=== PATIENT | male | born 1955 | race Caucasian/White ===

== ENCOUNTER 2019-07-21 22:49 | Emergency (ER) | payer OTHER ==
--- NOTE | 2019-07-21 23:06 | EDM.PDOC ---
ED HPI GENERAL MEDICAL PROBLEM - General Chief Complaint: Genitourinary Problem Stated Complaint: CAN'T GO TO THE BATHROOM Time Seen by Provider: 07/21/19 23:04 Source of Information: Reports: Patient History Limitations: Reports: No Limitations - History of Present Illness INITIAL COMMENTS - FREE TEXT/NARRATIVE: 63-year-old male who reports onset of bilateral mid to lower back pain yesterday afternoon while he was helping his will to do some work and then at approximately 8 PM last night he urinated blood. He was able urinate with no problems and did not notice any clots but he continued to have urination of blood today. He was seen at clinic by Dr. Hancock and reports that at the clinic his urine did not appear to have gross blood. He did have a urinalysis performed and some blood tests which are not available to me at this time. He was also scheduled to have a CT scan of his abdomen and pelvis and was referred to a urologist. He reports that he urinated once when he got home today at about 3 PM and he has not had any urine output since that time. He reports he has the feeling to urinate but he cannot urinate. He reports that he has discomfort in his lower abdomen that is a pressure and fullness and he rates that as an 8-10/10 at this point. No fever or chills. No nausea or vomiting. He reports that his back pain has pretty much resolved since yesterday. He has had some problems with enlarged prostate and has been on a medication for this for some time. There are no other associated signs or symptoms. There are no other modifying factors. Onset: Other (Yesterday as above) Duration: Getting Worse Location: Reports: Abdomen, Back Quality: Reports: Ache, Pressure Severity: Moderate (to severe.) Improves with: Reports: None Worsens with: Reports: Other (Palpation of his abdomen) Context: Reports: Other (As above) Associated Symptoms: Reports: Other (Blood in his urine. Back pain. Can't urinate.) Treatments [employer]ELOPMENT: Reports: Other (see below) (Nothing) Bladder Pain Score (Numeric/FACES): 7 - Related Data Allergies Allergy/AdvReac Type Severity Reaction Status Date / Time naproxen AdvReac Mild Ringing in Verified 09/12/13 10:12 the Ears Home Meds: Home Meds Losartan [Cozaar] 100 mg PO DAILY 09/12/13 [History] Simvastatin [Zocor] 20 mg PO BEDTIME 09/12/13 [History] Albuterol [Ventolin HFA] 1 - 2 inh INH Q4H PRN 07/22/19 [History] Aspirin [Halfprin] 81 mg PO DAILY 07/22/19 [History] Fluticasone Propionate [Flovent] 1 spr NASBOTH BID 07/22/19 [History] Fluticasone/Salmeterol [Advair 250-50 Diskus] 1 puff INH BID 07/22/19 [History] Multivitamin [Multi-Vitamin Daily] 1 tab PO DAILY 07/22/19 [History] Ranitidine [Zantac] 75 mg PO BID 07/22/19 [History] Tamsulosin HCl 0.4 mg PO BEDTIME 07/22/19 [History] metFORMIN HCl [Metformin HCl] 500 mg PO BID 07/22/19 [History] Past Medical History Cardiovascular History: Reports: High Cholesterol, Hypertension Respiratory History: Reports: COPD Genitourinary History: Reports: Prostate Disorder Endocrine/Metabolic History: Reports: Diabetes, Type II - Past Surgical History GI Surgical History: Reports: Hernia, Inguinal (Left) Musculoskeletal Surgical History: Reports: Other (See Below) (Tumor removed from left posterior leg) Social & Family History - Tobacco Use Smoking Status *Q: Current Every Day Smoker - Alcohol Use Alcohol Use History: No - Living Situation & Occupation Living situation: Reports: with Spouse Occupation: Retired ED ROS GENERAL - Review of Systems Review Of Systems: See Below Constitutional: Reports: No Symptoms HEENT: Reports: No Symptoms Respiratory: Reports: No Symptoms Cardiovascular: Reports: No Symptoms Endocrine: Reports: No Symptoms GI/Abdominal: Reports: Abdominal Pain (Feeling the urge to urinate) : Reports: Hematuria, Urinary Retention Musculoskeletal: Reports: Back Pain Skin: Reports: No Symptoms Neurological: Reports: No Symptoms Hematologic/Lymphatic: Reports: No Symptoms Immunologic: Reports: No Symptoms ED EXAM, RENAL/ - Physical Exam Exam: See Below Exam Limited By: No Limitations General Appearance: Alert, WD/WN, Moderate Distress (Looks fairly uncomfortable) Eye Exam: Bilateral Eye: EOMI, Normal Inspection, PERRL Ears: Normal External Exam, Hearing Grossly Normal Nose: Normal Inspection, Normal Mucosa, No Blood Throat/Mouth: Normal Inspection, Normal Lips, Normal Oropharynx, Normal Voice Head: Atraumatic, Normocephalic Neck: Normal Inspection, Supple, Non-Tender, Full Range of Motion Respiratory/Chest: No Respiratory Distress, Lungs Clear, Normal Breath Sounds, No Accessory Muscle Use, Chest Non-Tender Cardiovascular: Normal Peripheral Pulses, Regular Rate, Rhythm, No Edema, No Murmur GI/Abdominal: Normal Bowel Sounds, Distended (Suprapubic fullness), Tender ( Over suprapubic area) (Male) Exam: No Hernia, Normal Inspection (Uncircumcised) Back Exam: Normal Inspection. No: CVA Tenderness (R), CVA Tenderness (L) Extremities: Normal Inspection, Normal Range of Motion, Non-Tender, No Pedal Edema, Normal Capillary Refill Neurological: Alert, Oriented, CN II-XII Intact, Normal Cognition, Normal Gait, No Motor/Sensory Deficits Skin Exam: Warm, Dry, Intact, Normal Color, No Rash Course - Vital Signs Last Recorded V/S: Last Vital Signs Temp 36.6 C 07/21/19 22:49 Pulse 81 07/22/19 02:55 Resp 18 07/22/19 02:55 BP 145/96 H 07/22/19 02:55 Pulse Ox 98 07/22/19 02:55 - Orders/Labs/Meds Orders: Active Orders 24 hr Category Date Time Status Bladder Scan [RC] ASDIRECTED Care 07/21/19 23:00 Active Goode Catheter Insertion [Insert Urinary Catheter] [OM. Care 07/21/19 23:15 Ordered PC] Q24H Urinary Catheter Assessment [RC] QSHIFT Care 07/21/19 23:13 Active Abdomen Pelvis w wo Cont [CT] Stat Exams 07/22/19 00:12 Ordered CULTURE URINE [RM] Stat Lab 07/21/19 23:44 Received Sodium Chloride 0.9% [Saline Flush] Med 07/22/19 00:12 Active 10 ml FLUSH ASDIRECTED PRN Peripheral IV Insertion Adult [OM.PC] Routine Oth 07/22/19 00:12 Ordered Medication Orders Sodium Chloride (Saline Flush) 10 ml FLUSH ASDIRECTED PRN PRN Reason: Keep Vein Open Last Admin: 07/22/19 00:26 Dose: 10 ml Labs: Laboratory Tests 07/21/19 07/21/19 07/21/19 Range/Units 23:23 23:23 23:44 WBC 15.5 H (4.5-12.0) X10-3/uL RBC 4.71 (4.30-5.75) x10(6)uL Hgb 14.9 (13.5-17.8) g/dL Hct 44.2 (30.0-51.3) % MCV 93.7 (80-96) fL MCH 31.7 (27.7-33.6) pg MCHC 33.8 (32.2-35.4) g/dL RDW 12.0 (11.5-15.5) % Plt Count 322 (125-369) X10(3)uL MPV 7.7 (7.4-10.4) fL Neut % (Auto) 66.9 (46-82) % Lymph % (Auto) 22.7 (13-37) % [place] % (Auto) 6.7 (4-12) % Eos % (Auto) 3 (1.0-5.0) % Baso % (Auto) 1 (0-2) % Neut # (Auto) 10.4 H (1.6-8.3) # Lymph # (Auto) 3.5 (0.6-5.0) # [place] # (Auto) 1.0 (0.0-1.3) # Eos # (Auto) 0.5 (0.0-0.8) # Baso # (Auto) 0.1 (0.0-0.2) # Sodium 142 (135-145) mmol/L Potassium 4.1 (3.5-5.3) mmol/L Chloride 105 (100-110) mmol/L Carbon Dioxide 27 (21-32) mmol/L BUN 10 (7-18) mg/dL Creatinine 0.8 (0.70-1.30) mg/dL Est Cr Clr Drug Dosing TNP Estimated GFR (MDRD) > 60 (>60) BUN/Creatinine Ratio 12.5 (9-20) Glucose 105 (80-116) mg/dL Calcium 9.6 (8.6-10.2) mg/dL Total Bilirubin 0.4 (0.1-1.3) mg/dL AST 17 (5-25) IU/L ALT 25 (12-36) U/L Alkaline Phosphatase 75 (56-112) IU/L Total Protein 7.5 (6.0-8.0) g/dL Albumin 4.2 (3.2-4.6) g/dL Globulin 3.3 g/dL Albumin/Globulin Ratio 1.3 Urine Color Red (YELLOW) Urine Appearance Cloudy (CLEAR) Urine pH 7.0 H (5.0-6.5) Ur Specific [place] 1.005 L (1.010-1.025) Urine Protein 100 H (NEGATIVE) mg/dL Urine Glucose (UA) Normal (NORMAL) mg/dL Urine Ketones 15 H (NEGATIVE) mg/dL Urine Occult Blood Large H (NEGATIVE) Urine Nitrite Positive H (NEGATIVE) Urine Bilirubin Negative (NEGATIVE) Urine Urobilinogen Normal (NEGATIVE) mg/dL Ur Leukocyte Esterase Small H (NEGATIVE) Urine RBC Packed H (0-5) Urine WBC 0-5 (0-5) Ur Squamous Epith Cells Rare (NS,R,O) Urine Bacteria Few H (NS) Meds: Medications Generic Name Dose Route Start Last Admin Trade Name Freq PRN Reason Stop Dose Admin Sodium Chloride 10 ml 07/22/19 00:12 07/22/19 00:26 Saline Flush FLUSH 10 ml ASDIRECTED PRN Administration Keep Vein Open Discontinued Medications Generic Name Dose Route Start Last Admin Trade Name Freq PRN Reason Stop Dose Admin Iopamidol 100 ml 07/22/19 00:23 07/22/19 00:50 Isovue-370 (76%) IV 07/22/19 00:24 98 ml . DIRECTED ONE Administration Lidocaine HCl 1 ml 07/21/19 23:14 07/21/19 23:15 Glydo .XX 07/21/19 23:15 6 ml STAT STA Administration - Radiology Interpretation Free Text/Narrative:: CT scan of the abdomen and pelvis with and without contrast (CT urogram) showed a 2.1 cm exophytic mass on the lower pole of the right kidney. There was also a 6 cm mass in the bladder that was felt to be clot. There was also an enlarged prostate and an infrarenal aneurysmal dilatation of the aorta. - Re-Assessments/Exams Free Text/Narrative Re-Assessment/Exam: 07/21/19 23:02: Bladder scan showed 700 mL. The patient will need a Goode catheter and will most probably place a 3-way Goode secondary to the history of blood. 07/22/19 00:30: Goode catheter was placed and approximately 800 mL of bloody urine was obtained. The patient felt much improved after this. His bladder was irrigated with 1 L of normal saline and no clots were obtained. The effluent from the Goode catheter has since become blood-tinged but with no clots and the Goode catheter is draining normally. The patient has remained vitally stable. I will plan on ordering a CT of his abdomen and pelvis with and without IV contrast (CT urogram). 07/22/19 02:48: The results of the patient's CT scan have just come back at this time. They show a 2.1 cm exophytic mass off the lower pole of the right kidney concerning for renal cell carcinoma. There is also what appears to be a 6 cm blood clot within the urinary bladder. There is also a fusiform infrarenal aneurysmal dilatation to 3.1 cm. I will call and discuss the patient's case with a urologist at [facility]. 07/22/19 03:15: I discussed the patient's case with Dr. Neff, urologist at [facility], and he will look at the patient CT scan and call me back. 07/22/19 03:50: I discussed the patient's case with Dr. Neff again and he would want the patient to present to [facility] for admission to the CDU. He felt the patient to go by private vehicle. I discussed the patient's case with Dr. Call, hospitalist, and he has agreed to accept the patient in transfer. The Goode catheter will be left in place with the collection bag in place. The patient is to go directly to [facility] for admission to the CDU. Departure - Departure Time of Disposition: 04:00 Disposition: DC/Tfer to Acute Hospital 02 Condition: Good Clinical Impression: Gross hematuria, Kidney tumor, Prostatic enlargement - Discharge Information Referrals: Renato Hancock MD [Primary Care Provider] - Forms: ED Department Discharge Additional Instructions: You are to go directly to [facility] in [place] were you will be admitted to the CDU. The nursing staff will give you instructions on exactly where to go. You should have nothing to eat or drink until cleared by the doctors at [facility]. - My Orders Last 24 Hours: My Active Orders 07/21/19 23:00 Bladder Scan [RC] ASDIRECTED 07/21/19 23:13 Urinary Catheter Assessment [RC] QSHIFT 07/21/19 23:15 Goode Catheter Insertion [Insert Urinary Catheter] [OM.PC] Q24H 07/21/19 23:44 CULTURE URINE [RM] Stat 07/22/19 00:12 Abdomen Pelvis w wo Cont [CT] Stat Sodium Chloride 0.9% [Saline Flush] 10 ml FLUSH ASDIRECTED PRN Peripheral IV Insertion Adult [OM.PC] Routine - Assessment/Plan Last 24 Hours: My Active Orders 07/21/19 23:00 Bladder Scan [RC] ASDIRECTED 07/21/19 23:13 Urinary Catheter Assessment [RC] QSHIFT 07/21/19 23:15 Goode Catheter Insertion [Insert Urinary Catheter] [OM.PC] Q24H 07/21/19 23:44 CULTURE URINE [RM] Stat 07/22/19 00:12 Abdomen Pelvis w wo Cont [CT] Stat Sodium Chloride 0.9% [Saline Flush] 10 ml FLUSH ASDIRECTED PRN Peripheral IV Insertion Adult [OM.PC] Routine
[2019-07-21] MEDS ORDERED: Lidocaine 2% HCl 6 ML JEL.PF.APP STA (23:14)
[2019-07-22] MEDS ORDERED: Sodium Chloride 0.9% 10 ML Syringe FLUSH PRN (00:12)
[2019-07-22] MEDS ORDERED: Iopamidol 755 Mg/ML 100 ML Bottle IV ONE (00:23)
[2019-07-22 07:15] VITALS: BP 146/97; PULSE 87
== END 2019-07-22 06:05 ==
LOC: FB.ED 22:49
DX: R31.0 Gross hematuria (principal); D49.511 Neoplasm of unspecified behavior of right kidney; N40.0 Benign prostatic hyperplasia without lower urinary tract symptoms; E78.00 Pure hypercholesterolemia, unspecified; I10 Essential (primary) hypertension; J44.9 Chronic obstructive pulmonary disease, unspecified; E11.9 Type 2 diabetes mellitus without complications; F17.200 Nicotine dependence, unspecified, uncomplicated; Z79.899 Other long term (current) drug therapy; Z88.8 Allergy status to other drugs, medicaments and biological substances; Z79.82 Long term (current) use of aspirin; Z79.84 Long term (current) use of oral hypoglycemic drugs
CPT/HCPCS: 36415; 51702; 51798; 74178; 80053; 81001; 85025; 87086; 99284; 99285; A9270; Q9967

== ENCOUNTER 2020-11-25 13:44 | Emergency (ER) | payer OTHER ==
[2020-11-25] MEDS ORDERED: Sodium Chloride 0.9% 10 ML Syringe FLUSH PRN (13:59)
--- NOTE | 2020-11-25 14:09 | EDM.PDOC ---
ED HPI GENERAL MEDICAL PROBLEM - General Chief Complaint: Genitourinary Problem Stated Complaint: BLOOD IN URINE Time Seen by Provider: 11/25/20 14:05 Source of Information: Reports: Patient History Limitations: Reports: No Limitations - History of Present Illness INITIAL COMMENTS - FREE TEXT/NARRATIVE: Presents with painless gross hematuria since 0 today. No injury. Denies abdominal or back pain, urinary complaints, N/V, dizziness, or F/C. Had similar symptoms 07/2019 due to a right renal cell carcinoma. He underwent cryoablation of the mass 08/2019. Patient has had no recurrence of symptoms until today. Onset: Sudden Duration: Hour(s): (2) - Related Data Allergies Allergy/AdvReac Type Severity Reaction Status Date / Time naproxen AdvReac Mild Ringing in Verified 11/25/20 15:50 the Ears Home Meds: Home Meds Losartan [Cozaar] 100 mg PO DAILY 09/12/13 [History] Simvastatin [Zocor] 20 mg PO BEDTIME 09/12/13 [History] Albuterol [Ventolin HFA] 1 - 2 inh INH Q4H PRN 07/22/19 [History] Aspirin [Halfprin] 81 mg PO DAILY 07/22/19 [History] Fluticasone Propion/Salmeterol [Advair 250-50 Diskus] 1 puff INH BID 07/22/19 [History] Fluticasone Propionate [Flovent] 1 spr NASBOTH BID 07/22/19 [History] Multivitamin [Multi-Vitamin Daily] 1 tab PO DAILY 07/22/19 [History] Tamsulosin HCl 0.4 mg PO BEDTIME 07/22/19 [History] metFORMIN HCl [Metformin HCl] 500 mg PO BID 07/22/19 [History] Ciprofloxacin HCl [Cipro] 500 mg PO BID #14 tablet 11/25/20 [Rx] Finasteride [Proscar] 5 mg PO DAILY 11/25/20 [History] Past Medical History Cardiovascular History: Reports: High Cholesterol, Hypertension. Denies: CAD Respiratory History: Reports: COPD Genitourinary History: Reports: Prostate Disorder Endocrine/Metabolic History: Reports: Diabetes, Type II Oncologic (Cancer) History: Reports: Renal - Past Surgical History GI Surgical History: Reports: Hernia, Inguinal (Left) Male Surgical History: Reports: Other (See Below) (Cryoablation of right RCC 08/2019) Musculoskeletal Surgical History: Reports: Other (See Below) (Tumor removed from left posterior leg) Social & Family History - Family History Family Medical History: No Pertinent Family History - Tobacco Use Tobacco Use Status *Q: Current Every Day Tobacco User Tobacco Use Within Last Twelve Months: Cigarettes - Caffeine Use Caffeine Use: Reports: None - Living Situation & Occupation Living situation: Reports: with Spouse Occupation: Retired ED ROS GENERAL - Review of Systems Review Of Systems: Comprehensive ROS is negative, except as noted in HPI. ED EXAM, RENAL/ - Physical Exam Exam: See Below Exam Limited By: No Limitations General Appearance: Alert, WD/WN, No Apparent Distress Head: Atraumatic, Normocephalic Neck: Full Range of Motion Respiratory/Chest: No Respiratory Distress, Lungs Clear, Normal Breath Sounds Cardiovascular: Regular Rate, Rhythm, No Gallop, No Murmur GI/Abdominal: Normal Bowel Sounds, Soft, Non-Tender, No Distention Back Exam: Full Range of Motion Extremities: Normal Range of Motion Neurological: Alert, Normal Cognition, No Motor/Sensory Deficits Psychiatric: Normal Affect, Normal Mood Skin Exam: Warm, Dry, Intact Course - Vital Signs Last Recorded V/S: Last Vital Signs Temp 36.7 C 11/25/20 14:00 Pulse 96 11/25/20 14:00 Resp 20 11/25/20 14:00 BP 138/78 11/25/20 14:00 Pulse Ox 100 11/25/20 14:00 - Orders/Labs/Meds Orders: Active Orders 24 hr Category Date Time Status Abdomen Pelvis w wo Cont [CT] Stat Exams 11/25/20 14:30 Taken CULTURE URINE [RM] Stat Lab 11/25/20 13:30 Received Sodium Chloride 0.9% [Saline Flush] Med 11/25/20 13:59 Active 10 ml FLUSH ASDIRECTED PRN Saline Lock Insert [OM.PC] Routine Oth 11/25/20 13:59 Ordered Medication Orders Sodium Chloride (Saline Flush) 10 ml FLUSH ASDIRECTED PRN PRN Reason: Keep Vein Open Labs: Laboratory Tests 11/25/20 11/25/20 11/25/20 Range/Units 14:05 14:05 14:05 WBC 12.7 H (3.2-10.1) x10-3/uL RBC 4.65 (3.90-5.90) x10(6)uL Hgb 14.6 (12.9-17.7) g/dL Hct 44.0 (38.3-50.1) % MCV 94.6 (80.8-98.7) fL MCH 31.3 (27.0-33.3) pg MCHC 33.1 (28.7-35.3) g/dL RDW 12.5 (12.4-15.0) % Plt Count 271 (117-477) x10(3)uL MPV 7.6 (6.7-11.0) fL Neut % (Auto) 73.2 H (40.3-71.8) % Lymph % (Auto) 16.7 (15.8-45.3) % [place] % (Auto) 7.4 (5.5-15.2) % Eos % (Auto) 1.9 (0.1-6.8) % Baso % (Auto) 0.8 (0.3-3.8) % Neut # (Auto) 9.3 H (1.7-6.9) x10-3/uL Lymph # (Auto) 2.1 (0.5-4.5) x10-3/uL [place] # (Auto) 0.9 (0.0-1.2) x10-3/uL Eos # (Auto) 0.2 (0.0-0.6) x10-3/uL Baso # (Auto) 0.1 (0.0-0.3) x10-3/uL PT 10.8 (9.0-11.1) sec INR 1.00 (1.00-1.24) Sodium 136 (135-145) mmol/L Potassium 4.1 (3.5-5.3) mmol/L Chloride 100 D (100-110) mmol/L Carbon Dioxide 27 (21-32) mmol/L BUN 15 (7-18) mg/dL Creatinine 0.9 (0.70-1.30) mg/dL Est Cr Clr Drug Dosing 88.31 mL/min Estimated GFR (MDRD) > 60 (>60) BUN/Creatinine Ratio 16.7 (9-20) Glucose 92 (80-116) mg/dL Calcium 9.0 (8.6-10.2) mg/dL Total Bilirubin 0.4 (0.1-1.3) mg/dL AST 19 D (5-25) IU/L ALT 35 D (12-36) U/L Alkaline Phosphatase 76 (56-112) IU/L Total Protein 7.4 (6.0-8.0) g/dL Albumin 4.3 (3.2-4.6) g/dL Globulin 3.1 g/dL Albumin/Globulin Ratio 1.4 Meds: Medications Generic Name Dose Route Start Last Admin Trade Name Freq PRN Reason Stop Dose Admin Sodium Chloride 10 ml 11/25/20 13:59 Saline Flush FLUSH ASDIRECTED PRN Keep Vein Open Discontinued Medications Generic Name Dose Route Start Last Admin Trade Name Freq PRN Reason Stop Dose Admin Ciprofloxacin 500 mg 11/25/20 15:54 Ciprofloxacin Hcl PO 11/25/20 15:55 ONETIME ONE Iopamidol 100 ml 11/25/20 14:40 11/25/20 15:09 Isovue-370 (76%) IV 11/25/20 14:41 100 ml . DIRECTED ONE Administration - Radiology Interpretation Free Text/Narrative:: CT Abd/Pelvis w/ and s/ contrast: IMPRESSION: 1. Post ablation defect in the inferior pole of the right kidney without evidence of residual or recurrent tumor. No etiology of hematuria identified. No acute abnormality seen. 2. Enlarged prostate. Finalized by: David Westbrook MD on 11/25/2020 3:37 PM VAMPER - Re-Assessments/Exams Free Text/Narrative Re-Assessment/Exam: 11/25/20 15:56 Hematuria spontaneously resolved in the ED, subsequent urine output after initial grossly bloody specimen was clear yellow (per patient) Departure - Departure Time of Disposition: 15:58 Disposition: Home, Self-Care 01 Condition: Good Clinical Impression: Gross hematuria - Discharge Information *PRESCRIPTION DRUG MONITORING PROGRAM REVIEWED*: No *COPY OF PRESCRIPTION DRUG MONITORING REPORT IN PATIENT GERHARD: Not Applicable Prescriptions: Ciprofloxacin HCl [Cipro] 500 mg PO BID #14 tablet Instructions: Hematuria, Adult Referrals: Samir Young MD [Ordering Only Provider] - 2 Days Forms: ED Department Discharge Additional Instructions: Fill the prescription for Cipro and take as directed. Hold your Aspirin and Metformin for 2 days. Follow up with your Urologist in 2-3 days. Return to the ER as needed. Sepsis Event Note (ED) - Focused Exam Vital Signs: Vital Signs Temp Pulse Resp BP Pulse Ox 11/25/20 14:00 36.7 C 96 20 138/78 100 - My Orders Last 24 Hours: My Active Orders 11/25/20 13:30 CULTURE URINE [RM] Stat 11/25/20 13:59 Sodium Chloride 0.9% [Saline Flush] 10 ml FLUSH ASDIRECTED PRN Saline Lock Insert [OM.PC] Routine 11/25/20 14:30 Abdomen Pelvis w wo Cont [CT] Stat - Assessment/Plan Last 24 Hours: My Active Orders 11/25/20 13:30 CULTURE URINE [RM] Stat 11/25/20 13:59 Sodium Chloride 0.9% [Saline Flush] 10 ml FLUSH ASDIRECTED PRN Saline Lock Insert [OM.PC] Routine 11/25/20 14:30 Abdomen Pelvis w wo Cont [CT] Stat
[2020-11-25] MEDS ORDERED: Iopamidol 755 Mg/ML 100 ML Bottle IV ONE (14:40)
[2020-11-25] MEDS ORDERED: Ciprofloxacin 500 MG Tab PO ONE (15:54)
[2020-11-25 16:12] VITALS: BP 132/87; PULSE 94
== END 2020-11-25 16:10 | disposition home or self-care (01) ==
LOC: FB.ED 13:44
DX: R31.0 Gross hematuria (principal); E78.00 Pure hypercholesterolemia, unspecified; I10 Essential (primary) hypertension; J44.9 Chronic obstructive pulmonary disease, unspecified; E11.9 Type 2 diabetes mellitus without complications; Z72.0 Tobacco use; Z88.8 Allergy status to other drugs, medicaments and biological substances; Z79.82 Long term (current) use of aspirin; Z79.899 Other long term (current) drug therapy
CPT/HCPCS: 36415; 74178; 80053; 85025; 85610; 87086; 99284-25; A9270-GY; Q9967